=== PATIENT | female | born 1935 | race Two or more races ===

== ENCOUNTER 2019-08-12 07:14 | Outpatient (CLI) | payer OTHER | END 2019-08-12 14:15 | disposition home or self-care (01) | LOC: RX STUDY 07:14 | DX: R13.19 Other dysphagia (principal) ==

== ENCOUNTER 2020-10-22 19:02 | Emergency (ER) | payer OTHER ==
[~2020-10-22] VITALS: Ht 162.6 cm; Wt 72.6 kg
[2020-10-22] MEDS ORDERED: FORTAMET500 MG (19:41)
[2020-10-22] MEDS ORDERED: LIPITOR40 MG (19:41)
[2020-10-22] MEDS ORDERED: IBU800 MG PO (23:44)
== END 2020-10-22 23:51 | disposition home or self-care (01) ==
LOC: ER 19:02
DX: S10.83XA Contusion of other specified part of neck, initial encounter (principal); V43.52XA Car driver injured in collision with other type car in traffic accident, initial encounter; Y93.89 Activity, other specified; Y92.481 Parking lot as the place of occurrence of the external cause; Y99.8 Other external cause status

== ENCOUNTER 2023-01-19 10:39 | Emergency (ER) | payer OTHER ==
[~2023-01-19] VITALS: Ht 160 cm; Wt 70.8 kg
[~2023-01-19 10:39] MED LIST: FORTAMET500 MG; IBU800 MG PO; LIPITOR40 MG
== END 2023-01-19 14:09 | disposition home or self-care (01) ==
LOC: ER 10:39
DX: M62.838 Other muscle spasm (principal); I10 Essential (primary) hypertension; V49.9XXA Car occupant (driver) (passenger) injured in unspecified traffic accident, initial encounter; Y93.9 Activity, unspecified; Y92.9 Unspecified place or not applicable; Y99.9 Unspecified external cause status